=== PATIENT | female | born 1965 | race Caucasian/White ===

== ENCOUNTER 2018-01-23 08:07 | Emergency (ER) | payer MEDICARE ==
[2018-01-23 08:37] VITALS: BP 129/62
--- NOTE | 2018-01-23 10:40 | Emergency Department Report ---
Upper Extremity - HPI Chief Complaint: Shoulder Injury Stated Complaint: SHOULDER PAIN Time Seen by Provider: 01/23/18 10:36 Upper Extremity: Left Shoulder (TTP and right scapula) Occurred When: 3 Days Mechanism: Other (none) Severity: moderate Symptoms: Yes Pain with Movement, No Deformity, No Limited Range of Movement, No Numbness, No Weakness, No Swelling, No Bruising/Ecchymosis, No Laceration or Abrasion Other History: Patient reports right shoulder and upper back pain that started during the night two days ago. She tried OTC Tylenol, however to no avail. She denies YAQUELIN or chest pain ED Review of Systems ROS: Stated complaint: SHOULDER PAIN Other details as noted in HPI Constitutional: denies: chills, fever Eyes: denies: eye pain, eye discharge, vision change ENT: denies: ear pain, throat pain Respiratory: denies: cough, orthopnea, shortness of breath, SOB with exertion, SOB at rest, stridor, wheezing Cardiovascular: denies: chest pain, palpitations, dyspnea on exertion, orthopnea , edema, syncope, paroxysmal nocturnal dyspnea Gastrointestinal: denies: abdominal pain, nausea, diarrhea Genitourinary: denies: urgency, dysuria, discharge Musculoskeletal: back pain (right upper), arthralgia (right shoulder) Neurological: denies: headache, weakness, paresthesias Psychiatric: denies: anxiety, depression Hematological/Lymphatic: denies: easy bleeding, easy bruising ED Past Medical Hx - Past Medical History Previous Medical History?: Yes Hx Hypertension: Yes Hx CVA: No Hx Heart Attack/AMI: No Hx Congestive Heart Failure: No Hx Diabetes: Yes Hx Deep Vein Thrombosis: No Hx Pulmonary Embolism: No Hx GERD: No Hx Liver Disease: No Hx Renal Disease: No Hx Sickle Cell Disease: No Hx Arthritis: No Hx Headaches / Migraines: No Hx Seizures: No Hx Kidney Stones: No Hx Psychiatric Treatment: No Hx Asthma: No Hx COPD: Yes ("borderline") Hx Tuberculosis: No Hx Dementia: No Hx HIV: No - Surgical History Past Surgical History?: Yes Hx Coronary Stent: No Hx Open Heart Surgery: No Hx Pacemaker: No Hx Internal Defibrillator: No Hx Cholecystectomy: No Hx Appendectomy: No Hx Breast Surgery: No Additional Surgical History: right wrist,bilateral foot and ectopic - Social History Smoking Status: Never Smoker - Medications Home Medications: Home Medications Medication Instructions Recorded Confirmed Last Taken Type Albuterol Sulfate [Ventolin HFA] 2 puff IH Q4H PRN #1 hfa.aer.ad 02/12/16 Unknown Rx Azithromycin [Zithromax Z-GAYLE] 250 mg PO DAILY #1 pack 02/12/16 Unknown Rx Benzonatate [Tessalon Perles] 100 mg PO Q6HR #14 capsule 02/12/16 Unknown Rx Losartan/Hydrochlorothiazide 1 cap PO DAILY 02/12/16 02/12/16 Unknown History [Losartan-Hctz 50-12.5 mg Tab] Saxagliptin HCl/Metformin HCl 1 cap PO DAILY 02/12/16 02/12/16 Unknown History [Kombiglyze XR 2.5-1,000 mg] Diclofenac Sodium 75 mg PO BID #20 tablet. 01/23/18 Unknown Rx Famotidine [Pepcid] 20 mg PO BID #20 tablet 01/23/18 Unknown Rx Upper Extremity Exam - Exam General: Vital signs noted. No distress. Alert and acting appropriately. Head and Torso: Yes Back Tenderness (right scapular), No HEENT Abnormality, No Neck Tenderness, No Chest/Lungs Abnormality, No Abdominal Tenderness Shoulder Exam: Yes Shoulder Tenderness (right), Yes Normal Range of Motion in Shoulder, No Clavicle Tenderness, No Shoulder Deformity, No AC Joint Tenderness Arm Exam: No Arm/Humerus Tenderness, No Arm Deformity Elbow: No Elbow Tenderness, No Normal Range of Motion in Elbow, No Elbow Deformity Forearm: No Forearm Tenderness, No Forearm Deformity, No Pain with Pronation, No Pain with Supination Wrist: Yes Normal ROM in Wrist, No Wrist Tenderness, No Wrist Deformity, No Snuffbox Tenderness, No Pain with Axial Thumb Compression Hand: Yes Normal ROM in Digit(s), No Hand Tenderness, No Hand Deformity, No Digit Tenderness, No Digit(s) Deformity, No Tendon Dysfunction CMS Exam: No Broken Skin, No Normal Distal Pulses, No Normal Capillary Refill, No Normal Distal Sensation ED Course Vital Signs 01/23/18 08:23 Temperature 97.5 F L Pulse Rate 97 H Respiratory 16 Rate Blood Pressure 129/62 O2 Sat by Pulse 97 Oximetry ED Medical Decision Making - Lab Data Vital Signs 01/23/18 08:23 Temperature 97.5 F L Pulse Rate 97 H Respiratory 16 Rate Blood Pressure 129/62 O2 Sat by Pulse 97 Oximetry - Medical Decision Making During the course of ED, all other systems are unremarkable except for documentation in HPI. Patient sent home with prescriptions for Diclofenac Sodium and Pepcid, instructed to follow up with her PCP. She verbalized understanding - Differential Diagnosis Right Shoulder Pain, Myalgia Critical care attestation.: If time is entered above; I have spent that time in minutes in the direct care of this critically ill patient, excluding procedure time. ED Disposition Clinical Impression: Myalgia Shoulder pain, acute Qualifiers: Laterality: right Qualified Code(s): M25.511 - Pain in right shoulder Disposition: DC-01 TO HOME OR SELFCARE Is pt being admited?: No Does the pt Need Aspirin: No Condition: Stable Instructions: Musculoskeletal Pain (ED) Additional Instructions: Take medication as directed. Follow up with the selective referral given at discharge Prescriptions: Diclofenac Sodium 75 mg PO BID #20 tablet. Famotidine [Pepcid] 20 mg PO BID #20 tablet Referrals: WILIAN NICHOLSON MD [Primary Care Provider] - 3-5 Days Time of Disposition: 10:38
== END 2018-01-23 10:47 | disposition home or self-care (01) ==
LOC: ED 08:07
DX: M25.511 Pain in right shoulder (principal); M79.1 Myalgia; I10 Essential (primary) hypertension; E11.9 Type 2 diabetes mellitus without complications; J44.9 Chronic obstructive pulmonary disease, unspecified
CPT/HCPCS: 99282

== ENCOUNTER 2018-05-02 22:35 | Emergency (ER) | payer MEDICARE ==
[2018-05-02 23:28] VITALS: BP 147/85
--- NOTE | 2018-05-03 03:05 | XRay Report ---
FINAL REPORT PROCEDURE: XR HIP 2-3V RT TECHNIQUE: RIGHT hip radiographs, 2 views each, including AP view of the pelvis. HISTORY: right hip jose COMPARISON: No prior studies are available for comparison. FINDINGS: Fracture (s) and/or Dislocation(s): None . Joint space(s): Normal. Soft tissues: Normal. Bone mineralization: Normal. Foreign bodies: None. IMPRESSION: Normal Examination.
--- NOTE | 2018-05-03 03:08 | XRay Report ---
FINAL REPORT PROCEDURE: XR SPINE LUMBOSACRAL 2-3V TECHNIQUE: Lumbar spine radiographs, including AP, lateral, and lumbosacral spot views. CPT 73235 HISTORY: Lower Back Pain COMPARISON: No prior studies are available for comparison. FINDINGS: Alignment: Normal. Vertebral body heights/Disk spaces: Normal. Fracture(s): None. Facets: Normal. Bone mineralization: Normal. IMPRESSION: Normal Examination.
--- NOTE | 2018-05-03 03:10 | XRay Report ---
FINAL REPORT PROCEDURE: XR SHOULDER 2+V RT TECHNIQUE: Right shoulder radiographs including AP views in internal and external rotation and abduction. CPT 41711 HISTORY: Right Shoulder pain COMPARISON: No prior studies are available for comparison. FINDINGS: Fracture (s) and/or Dislocation(s): None . Joint space(s): Normal . Soft tissues: Normal . Bone mineralization: Normal . Foreign bodies: None . IMPRESSION: Normal Examination
[2018-05-03] MEDS ORDERED: PERCOCET 5/325 PO ONE (04:17)
[2018-05-03] MEDS ORDERED: TORADOL IM ONE (04:17)
--- NOTE | 2018-05-03 04:18 | Emergency Department Report ---
ED Fall HPI - General Chief Complaint: Fall Stated Complaint: FALL Time Seen by Provider: 05/03/18 03:55 Source: patient, family Mode of arrival: Ambulatory - History of Present Illness Initial Comments: This is a 52-year-old female here with her reports that she was at a [employer] game today and at about 7:30 PM slipped and legs went into a split. She denies any head injury or neck injury. Denies a headache or neck pain. She is reporting right shoulder pain, right hip pain and lower back pain. Patient says she has arthritis in her lower back and they wanted to do a spinal fusion but she did not want to have that done but her doctor told her that if she ever falls that she needs to come and get an x-ray done to make sure she doesn't get a fracture. Pain is worse with movement and walk-in. Pain is better with rest. Denies taking any medication prior to coming to the emergency room. MD Complaint: fall -: This evening Fall From: standing When Fall Occurred: 1-3 hours [employer]CH[employer]OLOG[employer] Fall Witnessed: yes, by family Place Fall Occurred: other (Vook matamoros) Loss of Consciousness: none Prolonged Down Time?: no Symptoms Prior to Fall: none Location: back (lower back pain), pelvis (right hip pain) Location - Extremities: Right: Shoulder (pain) Severity: severe Severity scale (0 -10): 10 (A can) Quality: aching Context: tripped/slipped Associated Symptoms: denies: headache, neck pain, numbness, weakness, chest paint, shortness of breath, abdominal pain, hematuria, unable to walk, lightheaded, vertigo, confusion - Related Data Home Medications Medication Instructions Recorded Confirmed Last Taken Losartan/Hydrochlorothiazide 1 cap PO DAILY 02/12/16 02/12/16 Unknown [Losartan-Hctz 50-12.5 mg Tab] Saxagliptin HCl/Metformin HCl 1 cap PO DAILY 02/12/16 02/12/16 Unknown [Kombiglyze XR 2.5-1,000 mg] Previous Rx's Medication Instructions Recorded Last Taken Type Albuterol Sulfate [Ventolin HFA] 2 puff IH Q4H PRN #1 hfa.aer.ad 02/12/16 Unknown Rx Azithromycin [Zithromax Z-GAYLE] 250 mg PO DAILY #1 pack 04/25/16 Unknown Rx Benzonatate [Tessalon Perles] 100 mg PO Q6HR #14 capsule 02/12/16 Unknown Rx Diclofenac Sodium 75 mg PO BID #20 tablet. 01/23/18 Unknown Rx Famotidine [Pepcid] 20 mg PO BID #20 tablet 01/23/18 Unknown Rx traMADol [Ultram] 50 mg PO Q6HR PRN #12 tablet 05/03/18 Unknown Rx Allergies Allergy/AdvReac Type Severity Reaction Status Date / Time No Known Allergies Allergy Verified 01/23/18 08:37 ED Review of Systems ROS: Stated complaint: FALL Other details as noted in HPI Constitutional: denies: chills, fever Eyes: denies: eye pain, eye discharge Respiratory: denies: cough, shortness of breath, SOB with exertion, SOB at rest , stridor, wheezing Cardiovascular: denies: chest pain, palpitations Gastrointestinal: denies: abdominal pain, nausea, vomiting Genitourinary: denies: urgency, dysuria, discharge Musculoskeletal: back pain, arthralgia. denies: joint swelling, myalgia Skin: denies: rash, lesions Neurological: denies: headache, weakness, numbness, paresthesias, confusion, abnormal gait, vertigo ED Past Medical Hx - Past Medical History Previous Medical History?: Yes Hx Hypertension: Yes Hx CVA: No Hx Heart Attack/AMI: No Hx Congestive Heart Failure: No Hx Diabetes: Yes Hx Deep Vein Thrombosis: No Hx Pulmonary Embolism: No Hx GERD: No Hx Liver Disease: No Hx Renal Disease: No Hx Sickle Cell Disease: No Hx Arthritis: No Hx Headaches / Migraines: No Hx Seizures: No Hx Kidney Stones: No Hx Psychiatric Treatment: No Hx Asthma: No Hx COPD: Yes ("borderline") Hx Tuberculosis: No Hx Dementia: No Hx HIV: No Additional medical history: Lumbar 3and5 -Chronic Low Back Pain - Surgical History Past Surgical History?: Yes Hx Coronary Stent: No Hx Open Heart Surgery: No Hx Pacemaker: No Hx Internal Defibrillator: No Hx Cholecystectomy: No Hx Appendectomy: No Hx Breast Surgery: No Additional Surgical History: right wrist,bilateral foot , Tubal Ligation - Family History Family history: hypertension - Social History Smoking Status: Never Smoker Substance Use Type: None - Medications Home Medications: Home Medications Medication Instructions Recorded Confirmed Last Taken Type Albuterol Sulfate [Ventolin HFA] 2 puff IH Q4H PRN #1 hfa.aer.ad 02/12/16 Unknown Rx Azithromycin [Zithromax Z-GAYLE] 250 mg PO DAILY #1 pack 02/12/16 Unknown Rx Benzonatate [Tessalon Perles] 100 mg PO Q6HR #14 capsule 02/12/16 Unknown Rx Losartan/Hydrochlorothiazide 1 cap PO DAILY 02/12/16 02/12/16 Unknown History [Losartan-Hctz 50-12.5 mg Tab] Saxagliptin HCl/Metformin HCl 1 cap PO DAILY 02/12/16 02/12/16 Unknown History [Kombiglyze XR 2.5-1,000 mg] Diclofenac Sodium 75 mg PO BID #20 tablet. 01/23/18 Unknown Rx Famotidine [Pepcid] 20 mg PO BID #20 tablet 01/23/18 Unknown Rx traMADol [Ultram] 50 mg PO Q6HR PRN #12 tablet 05/03/18 Unknown Rx ED Physical Exam - General Limitations: No Limitations General appearance: alert, in no apparent distress - Head Head exam: Present: atraumatic, normocephalic, normal inspection, other (normal exam) - Eye Eye exam: Present: normal appearance, PERRL, EOMI Pupils: Present: normal accommodation - ENT ENT exam: Present: normal exam, normal orophraynx, mucous membranes moist - Neck Neck exam: Present: normal inspection, full ROM, other (no C-spine tenderness). Absent: tenderness, lymphadenopathy - Respiratory Respiratory exam: Present: normal lung sounds bilaterally. Absent: respiratory distress, chest wall tenderness - Cardiovascular Cardiovascular Exam: Present: regular rate, normal rhythm, normal heart sounds. Absent: systolic murmur, diastolic murmur - GI/Abdominal GI/Abdominal exam: Present: soft, normal bowel sounds. Absent: distended, tenderness, rigid - Extremities Exam Extremities exam: Present: normal inspection, full ROM, normal capillary refill , other (no clubbing, cyanosis or edema. +2 pulses to all extremities and no neurovascular compromise. No abrasion, contusion or laceration to extremities. +5 strength in all extremities. Normal extremity exam). Absent: tenderness, pedal edema, joint swelling, calf tenderness - Back Exam Back exam: Present: normal inspection, full ROM, tenderness, paraspinal tenderness (right), other (ablated without any difficulties). Absent: CVA tenderness (R), CVA tenderness (L), muscle spasm, vertebral tenderness, rash noted - Expanded Back Exam Expanded Back exam: Absent: saddle anesthesia Back exam: Negative Straight Leg Raising: Left, Right - Neurological Exam Neurological exam: Present: alert, oriented X3, normal gait, reflexes normal. Absent: motor sensory deficit - Expanded Neurological Exam Expanded Neurological exam: Absent: innattentive, memory loss-remote event, memory loss- recent event, ataxia, receptive aphasia, expressive aphasia, total aphasia, tremor, protecting the airway Patient oriented to: Present: person, place, time Speech: Present: fluid speech Cranial nerves: EOM's Intact: Normal, Gag Reflex: Normal, Tongue Deviation: Normal, Nystagmus: Normal, Facial Sensation: Normal Cerebellar function: Romberg: Normal Upper motor neuron: Pronator Drift: Normal, Sensory Extinction: Normal Sensory exam: Upper Extremity Light Touch: Normal, Upper Extremity Temperature: Normal, UE 2 Point Discrimination: Normal, Lower Extremity Light Touch: Normal, Lower Extremity Temperature: Normal, LE 2 Point Discrimination: Normal Motor strength exam: RUE: 5, LUE: 5, RLE: 5, LLE: 5 Best Eye Response (Jo Ann): (4) open spontaneously Best Motor Response ([place]): (6) obeys commands Best Verbal Response ([place]): (5) oriented Jo Ann Total: 15 - Psychiatric Psychiatric exam: Present: normal affect, normal mood - Skin Skin exam: Present: warm, dry, intact, normal color. Absent: rash ED Course Vital Signs 05/02/18 23:20 Temperature 98.6 F Pulse Rate 72 Respiratory 18 Rate Blood Pressure 147/85 O2 Sat by Pulse 95 Oximetry - Reevaluation(s) Reevaluation #1: 05/03/18 05:16 Patient given Toradol 30 mg IM for right lumbar strain. She voiced relief of pain. ED Medical Decision Making - Radiology Data Radiology results: report reviewed Patient with x-ray of right hip, lumbar spine, right shoulder which were dictated by radiologist and report reviewed by myself. She has no acute findings. See reports below. Patient: EREN HURTADO MR#: [id number] : 1965 Acct:[id number] Age/Sex: 52 / F ADM Date: 05/02/18 Loc: ED Attending Dr: Ordering Physician: HIMANSHU NOVA MD Date of Service: 05/03/18 Procedure(s): XR hip 2-3V RT Accession Number(s): [id number] cc: HIMANSHU NOVA MD Fluoro Time In Minutes: FINAL REPORT PROCEDURE: XR HIP 2-3V RT TECHNIQUE: RIGHT hip radiographs, 2 views each, including AP view of the pelvis. HISTORY: right hip jose COMPARISON: No prior studies are available for comparison. FINDINGS: Fracture (s) and/or Dislocation(s): None . Joint space(s): Normal. Soft tissues: Normal. Bone mineralization: Normal. Foreign bodies: None. IMPRESSION: Normal Examination. Transcribed By: CO Dictated By: LOGAN BARRIOS MD Electronically Authenticated By: LOGAN BARRIOS MD Signed Date/Time: 05/03/18299 DD/ 9 TD/TT: 05/03/18299 Patient: EREN HURTADO MR#: [id number] : 1965 Acct:[id number] Age/Sex: 52 / F ADM Date: 05/02/18 Loc: ED Attending Dr: Ordering Physician: HIMANSHU NOVA MD Date of Service: 05/03/18 Procedure(s): XR spine lumbosacral 2-3V Accession Number(s): [id number] cc: HIMANSHU NOVA MD Fluoro Time In Minutes: FINAL REPORT PROCEDURE: XR SPINE LUMBOSACRAL 2-3V TECHNIQUE: Lumbar spine radiographs, including AP, lateral, and lumbosacral spot views. CPT 01424 HISTORY: Lower Back Pain COMPARISON: No prior studies are available for comparison. FINDINGS: Alignment: Normal. Vertebral body heights/Disk spaces: Normal. Fracture(s): None. Facets: Normal. Bone mineralization: Normal. IMPRESSION: Normal Examination. Transcribed By: CO Dictated By: LOGAN BARRIOS MD Electronically Authenticated By: LOGAN BARRIOS MD Signed Date/Time: 05/03/18302 DD/ 2 TD/TT: 05/03/18302 Patient: EREN HURTADO MR#: [id number] : 1965 Acct:[id number] Age/Sex: 52 / F ADM Date: 05/02/18 Loc: ED Attending Dr: Ordering Physician: HIMANSHU NOVA MD Date of Service: 05/03/18 Procedure(s): XR shoulder 2+V RT Accession Number(s): [id number] cc: HIMANSHU NOVA MD Fluoro Time In Minutes: FINAL REPORT PROCEDURE: XR SHOULDER 2+V RT TECHNIQUE: Right shoulder radiographs including AP views in internal and external rotation and abduction. CPT 82616 HISTORY: Right Shoulder pain COMPARISON: No prior studies are available for comparison. FINDINGS: Fracture (s) and/or Dislocation(s): None . Joint space(s): Normal . Soft tissues: Normal . Bone mineralization: Normal . Foreign bodies: None . IMPRESSION: Normal Examination Transcribed By: CO Dictated By: LOGAN BARRIOS MD Electronically Authenticated By: LOGAN BARRIOS MD Signed Date/Time: 05/03/18304 DD/ 4 TD/TT: 05/03/18304 - Medical Decision Making This is a 52-year-old female presents to emergency room with her . She says she was at [facility] around 730 pm last night and she fell into a split position. She is complaining of arthralgia multiple sites with right lower back pain. Patient states that he has a history of degenerative arthritis in her lower back and she wants to be evaluated to make sure things okay. Patient was examined by myself and she has right lumbar paraspinal tenderness without any vertebral tenderness. C-spine exam is normal, upper and lower extremity exam is normal. Patient is neurologically intact. Patient had x-ray of right shoulder, right hip and lumbar spine and was dictated by radiologist and x-rays report reviewed by myself. No acute findings per radiology. I discussed this with patient and her and they voice understanding. Patient given pain medication emergency room for musculoskeletal pain and lumbar strain. Patient with arthralgia multiple sites, lumbar strain and lower back pain Toradol 30 mg IM given for relief of pain. I discussed the patient that she is to follow-up with her orthopedic doctor which she does have one and she also has a neurosurgeon. I'll appear in 2-3 days and return to the emergency room if her symptoms worsen and she develops numbness certainly to extremities, loss of bowel or bladder function and/or difficulty walking. She voiced understanding. Patient discharged home in stable condition. Her vital signs are stable and she is afebrile. Patient's better. Discharge home with her to follow up with her orthopedic doctor in 3-5 days. She was given a prescription for Ultram. - Differential Diagnosis fracture, dislocation, subluxation, strain, spasm, MSK pain Critical care attestation.: If time is entered above; I have spent that time in minutes in the direct care of this critically ill patient, excluding procedure time. ED Disposition Clinical Impression: Arthralgia of multiple sites Strain of lumbar paraspinal muscle Qualifiers: Encounter type: initial encounter Qualified Code(s): S39.012A - Strain of muscle, fascia and tendon of lower back, initial encounter Lower back pain Qualifiers: Chronicity: acute Back pain laterality: right Sciatica presence: without sciatica Qualified Code(s): M54.5 - Low back pain Disposition: TO HOME OR SELFCARE Is pt being admited?: No Does the pt Need Aspirin: No Condition: Stable Instructions: Muscle Strain (ED), Arthralgia (ED), Back Pain (ED) Additional Instructions: Please follow up with primary care as recommended Increase fluid intake Take medication as prescribed . please do not drive or operate heavy machinery while Ultram as it causes drowsiness follow-up with orthopedic doctor as instructed. Prescriptions: traMADol [Ultram] 50 mg PO Q6HR PRN #12 tablet PRN Reason: Pain Referrals: PRIMARY CARE, [Primary Care Provider] - 2-3 Days NGUYEN LAL MD [Staff Physician] - 2-3 Days Forms: Accompanied Note
== END 2018-05-03 04:57 | disposition home or self-care (01) ==
LOC: ED 22:35
DX: S39.012A Strain of muscle, fascia and tendon of lower back, initial encounter (principal); M25.511 Pain in right shoulder; M25.551 Pain in right hip; I10 Essential (primary) hypertension; E11.9 Type 2 diabetes mellitus without complications; J44.9 Chronic obstructive pulmonary disease, unspecified; Z98.51 Tubal ligation status; W01.198A Fall on same level from slipping, tripping and stumbling with subsequent striking against other object, initial encounter; Y93.89 Activity, other specified; Y92.89 Other specified places as the place of occurrence of the external cause; Y99.8 Other external cause status
CPT/HCPCS: 72100; 73030; 73502; 96372; 99283; J1885

== ENCOUNTER 2019-10-25 02:08 | Emergency (ER) | payer MEDICARE ==
[2019-10-25] MEDS ORDERED: ASPIRIN 325 MG TAB PO ONE (02:50)
[2019-10-25 03:17] LABS: Hematocrit 41.7 % (30.3-42.9); Mean Corpuscular HGB Conc 31 % (30-34); Platelet Count 346 K/mm3 (140-440); Red Blood Count 6.03 M/mm3 (3.65-5.03); Red Cell Distribution Width 14.6 % (13.2-15.2)
[2019-10-25 03:29] LABS: Mean Corpuscular Volume 69 fl (79-97)
[2019-10-25 03:34] LABS: BUN/Creatinine Ratio 17; Blood Urea Nitrogen 10 mg/dL (7-17); Calcium 9.9 mg/dL (8.4-10.2); Hemolysis Index 16
--- NOTE | 2019-10-25 03:49 | XRay Report ---
CHEST 1 VIEW, 10/25/2019 3:20 AM CLINICAL INFORMATION/INDICATION: Chest pain COMPARISON: Chest radiograph, 02/12/2016 FINDINGS: SUPPORT DEVICES: None. HEART: The cardiac silhouette is normal in size. LUNGS/PLEURA: The lungs are clear of focal airspace disease or significant pleural effusion. ADDITIONAL FINDINGS: No additional acute findings. IMPRESSION: 1. No evidence of acute cardiopulmonary process. Signer Name: Nisa Garcia MD Signed: 10/25/2019 3:45 AM Workstation Name: [email or web address]
[2019-10-25 04:39] LABS: Hypochromasia 2+; Total Cells Counted 100
[2019-10-25 04:40] LABS: Schistocytes Rare; Target Cells Few
[2019-10-25 04:41] LABS: Ovalocytes Few; Platelet Estimate Consistent w Auto
[2019-10-25 07:29] VITALS: BP 153/75
[2019-10-25] MEDS ORDERED: CYCLOBENZAPRINE 10 MG TAB PO ONE (09:39)
[2019-10-25] MEDS ORDERED: dexAMETHasone 20 MG/5 ML VIAL IM ONE (09:40)
--- NOTE | 2019-10-25 09:49 | Emergency Department Report ---
Upper Extremity - HPI Chief Complaint: Chest Pain Stated Complaint: LEFT ARM/SHOULDER PAIN Time Seen by Provider: 10/25/19 09:00 Occurred When: Today Severity: mild Symptoms: Yes Limited Range of Movement, No Pain with Movement, No Deformity, No Numbness, No Weakness, No Swelling, No Bruising/Ecchymosis, No Laceration or Abrasion Other History: This is a 53-year-old female with a past medical history of diabetes who presents to ED complaining of left shoulder and hand pain that began this morning. Patient states that she felt like pins and needles in her shoulder radiating down to her hands. She denies any chest pain, shortness of breath, difficulty breathing. She states she takes Janumet for diabetes. ED Review of Systems ROS: Stated complaint: LEFT ARM/SHOULDER PAIN Other details as noted in HPI Comment: All other systems reviewed and negative ED Past Medical Hx - Past Medical History Previous Medical History?: Yes Hx Hypertension: Yes Hx CVA: No Hx Heart Attack/AMI: No Hx Congestive Heart Failure: No Hx Diabetes: Yes Hx Deep Vein Thrombosis: No Hx Pulmonary Embolism: No Hx GERD: No Hx Liver Disease: No Hx Renal Disease: No Hx Sickle Cell Disease: No Hx Arthritis: No Hx Headaches / Migraines: No Hx Seizures: No Hx Kidney Stones: No Hx Psychiatric Treatment: No Hx Asthma: No Hx COPD: Yes ("borderline") Hx Tuberculosis: No Hx Dementia: No Hx HIV: No Additional medical history: Lumbar 3and5 -Chronic Low Back Pain - Surgical History Past Surgical History?: Yes Hx Coronary Stent: No Hx Open Heart Surgery: No Hx Pacemaker: No Hx Internal Defibrillator: No Hx Cholecystectomy: No Hx Appendectomy: No Hx Breast Surgery: No Additional Surgical History: right wrist,bilateral foot , Tubal Ligation - Social History Smoking Status: Never Smoker Substance Use Type: None - Medications Home Medications: Home Medications Medication Instructions Recorded Confirmed Last Taken Type Albuterol Sulfate [Ventolin HFA] 2 puff IH Q4H PRN #1 hfa.aer.ad 02/12/16 Unknown Rx Azithromycin [Zithromax Z-GAYLE] 250 mg PO DAILY #1 pack 02/12/16 Unknown Rx Benzonatate [Tessalon Perles] 100 mg PO Q6HR #14 capsule 02/12/16 Unknown Rx Losartan/Hydrochlorothiazide 1 cap PO DAILY 02/12/16 02/12/16 Unknown History [Losartan-Hctz 50-12.5 mg Tab] Saxagliptin HCl/Metformin HCl 1 cap PO DAILY 02/12/16 02/12/16 Unknown History [Kombiglyze XR 2.5-1,000 mg] Diclofenac Sodium 75 mg PO BID #20 tablet. 01/23/18 Unknown Rx Famotidine [Pepcid] 20 mg PO BID #20 tablet 01/23/18 Unknown Rx traMADoL [Ultram] 50 mg PO Q6HR PRN #12 tablet 05/03/18 Unknown Rx Cyclobenzaprine [Flexeril] 10 mg PO QHS PRN #20 tablet 10/25/19 Unknown Rx Ibuprofen [Motrin 800 MG tab] 800 mg PO Q8HR PRN #30 tablet 10/25/19 Unknown Rx Upper Extremity Exam - Exam General: Vital signs noted. No distress. Alert and acting appropriately. Head and Torso: No HEENT Abnormality, No Neck Tenderness, No Chest/Lungs Abnormality, No Abdominal Tenderness, No Back Tenderness Shoulder Exam: Yes Shoulder Tenderness (upper and posterior), Yes Normal Range of Motion in Shoulder, No Clavicle Tenderness, No Shoulder Deformity, No AC Joint Tenderness Arm Exam: No Arm/Humerus Tenderness, No Arm Deformity Elbow: No Elbow Tenderness, No Normal Range of Motion in Elbow, No Elbow Deformity Forearm: No Forearm Tenderness, No Forearm Deformity, No Pain with Pronation, No Pain with Supination Wrist: Yes Normal ROM in Wrist, No Wrist Tenderness, No Wrist Deformity, No Snuffbox Tenderness, No Pain with Axial Thumb Compression Hand: Yes Digit Tenderness (slight, with flexion and extention), Yes Normal ROM in Digit(s), No Hand Tenderness, No Hand Deformity, No Digit(s) Deformity, No Tendon Dysfunction CMS Exam: No Broken Skin, No Normal Distal Pulses, No Normal Capillary Refill, No Normal Distal Sensation ED Course Vital Signs 10/25/19 10/25/19 02:26 07:28 Temperature 97.3 F L Pulse Rate 70 72 Respiratory 18 16 Rate Blood Pressure 137/74 Blood Pressure 153/75 [Right] O2 Sat by Pulse 95 97 Oximetry ED Medical Decision Making - Lab Data Result diagrams: 10/25/19 02:57 10/25/19 02:57 Laboratory Last Values WBC 9.4 K/mm3 (4.5-11.0) 10/25/19 02:57 RBC 6.03 M/mm3 (3.65-5.03) H 10/25/19 02:57 Hgb 13.0 gm/dl (10.1-14.3) 10/25/19 02:57 Hct 41.7 % (30.3-42.9) 10/25/19 02:57 MCV 69 fl (79-97) L 10/25/19 02:57 MCH 22 pg (28-32) L 10/25/19 02:57 MCHC 31 % (30-34) 10/25/19 02:57 RDW 14.6 % (13.2-15.2) 10/25/19 02:57 Plt Count 346 K/mm3 (140-440) 10/25/19 02:57 Lymph # Tin Pourer 10/25/19 02:57 Add Manual Diff Complete 10/25/19 02:57 Total Counted 100 10/25/19 02:57 Seg Neuts % (Manual) 27.0 % (40.0-70.0) L 10/25/19 02:57 Band Neutrophils % 0 % 10/25/19 02:57 Lymphocytes % (Manual) 55.0 % (13.4-35.0) H 10/25/19 02:57 Reactive Lymphs % (Man) 0 % 10/25/19 02:57 Monocytes % (Manual) 12.0 % (0.0-7.3) H 10/25/19 02:57 Eosinophils % (Manual) 5.0 % (0.0-4.3) H 10/25/19 02:57 Basophils % (Manual) 1.0 % (0.0-1.8) 10/25/19 02:57 Metamyelocytes % 0 % 10/25/19 02:57 Myelocytes % 0 % 10/25/19 02:57 Promyelocytes % 0 % 10/25/19 02:57 Blast Cells % 0 % 10/25/19 02:57 Nucleated RBC % Not Reportable 10/25/19 02:57 Seg Neutrophils # Man 2.5 K/mm3 (1.8-7.7) 10/25/19 02:57 Band Neutrophils # 0.0 K/mm3 10/25/19 02:57 Lymphocytes # (Manual) 5.2 K/mm3 (1.2-5.4) 10/25/19 02:57 Abs React Lymphs (Man) 0.0 K/mm3 10/25/19 02:57 Monocytes # (Manual) 1.1 K/mm3 (0.0-0.8) H 10/25/19 02:57 Eosinophils # (Manual) 0.5 K/mm3 (0.0-0.4) H 10/25/19 02:57 Basophils # (Manual) 0.1 K/mm3 (0.0-0.1) 10/25/19 02:57 Metamyelocytes # 0.0 K/mm3 10/25/19 02:57 Myelocytes # 0.0 K/mm3 10/25/19 02:57 Promyelocytes # 0.0 K/mm3 10/25/19 02:57 Blast Cells # 0.0 K/mm3 10/25/19 02:57 WBC Morphology Not Reportable 10/25/19 02:57 Hypersegmented Neuts Not Reportable 10/25/19 02:57 Hyposegmented Neuts Not Reportable 10/25/19 02:57 Hypogranular Neuts Not Reportable 10/25/19 02:57 Smudge Cells Not Reportable 10/25/19 02:57 Toxic Granulation Not Reportable 10/25/19 02:57 Toxic Vacuolation Not Reportable 10/25/19 02:57 Dohle Bodies Not Reportable 10/25/19 02:57 Pelger-Huet Anomaly Not Reportable 10/25/19 02:57 Sujey Rods Not Reportable 10/25/19 02:57 Platelet Estimate Consistent w auto 10/25/19 02:57 Clumped Platelets Not Reportable 10/25/19 02:57 Plt Clumps, EDTA Not Reportable 10/25/19 02:57 Large Platelets Not Reportable 10/25/19 02:57 Giant Platelets Not Reportable 10/25/19 02:57 Platelet Satelliting Not Reportable 10/25/19 02:57 Plt Morphology Comment Not Reportable 10/25/19 02:57 RBC Morphology Not Reportable 10/25/19 02:57 Dimorphic RBCs Not Reportable 10/25/19 02:57 Polychromasia Not Reportable 10/25/19 02:57 Hypochromasia 2+ 10/25/19 02:57 Poikilocytosis Not Reportable 10/25/19 02:57 Anisocytosis Not Reportable 10/25/19 02:57 Microcytosis Not Reportable 10/25/19 02:57 Macrocytosis Not Reportable 10/25/19 02:57 Spherocytes Not Reportable 10/25/19 02:57 Pappenheimer Bodies Not Reportable 10/25/19 02:57 Sickle Cells Not Reportable 10/25/19 02:57 Target Cells Few 10/25/19 02:57 Tear Drop Cells Not Reportable 10/25/19 02:57 Ovalocytes Few 10/25/19 02:57 Helmet Cells Not Reportable 10/25/19 02:57 Barrett-[place] Cordell Bodies Not Reportable 10/25/19 02:57 Cecil Rings Not Reportable 10/25/19 02:57 Valdez Cells Not Reportable 10/25/19 02:57 Bite Cells Not Reportable 10/25/19 02:57 Crenated Cell Not Reportable 10/25/19 02:57 Elliptocytes Not Reportable 10/25/19 02:57 Acanthocytes (Spur) Not Reportable 10/25/19 02:57 Rouleaux Not Reportable 10/25/19 02:57 Hemoglobin C Crystals Not Reportable 10/25/19 02:57 Schistocytes Rare 10/25/19 02:57 Malaria parasites Not Reportable 10/25/19 02:57 [place] Bodies Not Reportable 10/25/19 02:57 Hem Pathologist Commnt No 10/25/19 02:57 Sodium 141 mmol/L (137-145) 10/25/19 02:57 Potassium 4.5 mmol/L (3.6-5.0) 10/25/19 02:57 Chloride 101.2 mmol/L (98-107) 10/25/19 02:57 Carbon Dioxide 26 mmol/L (22-30) 10/25/19 02:57 Anion Gap 18 mmol/L 10/25/19 02:57 BUN 10 mg/dL (7-17) 10/25/19 02:57 Creatinine 0.6 mg/dL (0.7-1.2) L 10/25/19 02:57 Estimated GFR > 60 ml/min 10/25/19 02:57 BUN/Creatinine Ratio 17 % 10/25/19 02:57 Glucose 131 mg/dL (65-100) H 10/25/19 02:57 Calcium 9.9 mg/dL (8.4-10.2) 10/25/19 02:57 Troponin T < 0.010 ng/mL (0.00-0.029) 10/25/19 08:36 - Radiology Data Radiology results: report reviewed No acute findings. - Medical Decision Making 54-year-old female who presented with left shoulder pain secondary to tendinitis or cervical radiculopathy Patient was worked up as a chest pain patient and have all labs completed. EKG troponin and chest x-ray were all negative All labs are negative as well. Discussed all findings with the patient. Upon examination patient so signs of muscle spasm and left shoulder tendinitis. Discussed follow-up with primary care physician. Discussed medication such as Motrin and Flexeril for pain and spasm. Patient is in no acute distress at the moment patient received medication in the ED. Mathis vital signs are normal patient is in no acute distress. Critical care attestation.: If time is entered above; I have spent that time in minutes in the direct care of this critically ill patient, excluding procedure time. ED Disposition Clinical Impression: Left shoulder tendinitis, Left shoulder pain Disposition: DC-01 TO HOME OR SELFCARE Is pt being admited?: No Does the pt Need Aspirin: No Condition: Stable Instructions: Rotator Cuff Tendinitis (ED), Peripheral Neuropathy (ED) Additional Instructions: Make sure to follow up with the primary care physician as discussed. Take all your medications as you've been prescribed. If you have any worsening symptoms or develop new symptoms please return to ED immediately. Referrals: NGUYEN SINGH MD [Primary Care Provider] - 3-5 Days ABILIO PORRAS MD [Staff Physician] - 3-5 Days [facility] [Provider Group] - 3-5 Days Forms: Accompanied Note, Work/School Release Form(ED) Time of Disposition: 09:57
== END 2019-10-25 10:14 | disposition home or self-care (01) ==
LOC: ED 02:08
DX: M77.9 Enthesopathy, unspecified (principal); I10 Essential (primary) hypertension; E11.9 Type 2 diabetes mellitus without complications; J44.9 Chronic obstructive pulmonary disease, unspecified
CPT/HCPCS: 36415; 71045; 80048; 84484; 85007; 85025; 93005; 93010; 96372; 99284; J1100

== ENCOUNTER 2022-06-09 20:53 | Emergency (ER) | payer MEDICARE ==
[2022-06-10] MEDS ORDERED: oxyCODONE /ACETAMINOPHEN 5-325MG TAB PO ONE (01:24)
[2022-06-10] MEDS ORDERED: dexAMETHasone 20 MG/5 ML VIAL IM ONE (01:24)
[2022-06-10] MEDS ORDERED: KETOROLAC 60 MG/2 ML INJ IM ONE (01:24)
[2022-06-10] MEDS ORDERED: ONDANSETRON 4 MG ODT TAB PO ONE (01:24)
--- NOTE | 2022-06-10 01:52 | Emergency Department Report ---
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 Patient states that she followed up with her primary care physician who ordered some x-rays of her lumbar spine and which confirmed the need headaches that was stable. Patient states that she has been taking flun-lll-cadyeso medications with no relief. Patient states that in the last 3 days she has not been able to sleep because of worsening pain in her low back and bilateral shoulders. Patient denies dizziness, syncope, seizures, loss of consciousness, head or neck injuries, nausea and vomiting, chest pain, shortness of breath, numbness and tingling or weakness of upper and lower extremities bilaterally. MD Complaint: fall, other (bilateral shoulder pain, lower back pain ) -: Gradual, month(s) (2) Fall From: standing, other (slipped and fell down on floor) When Fall Occurred: other (2 months ago) Place Fall Occurred: other (grocery store) Loss of Consciousness: none Prolonged Down Time?: no Symptoms Prior to Fall: none Location: back (lower), pelvis, other (bilateral shoulder pain) Location - Extremities: Left: Shoulder (pain), Right: Shoulder Severity: severe Severity scale (0 -10): 8 Quality: sharp, aching Context: tripped/slipped Associated Symptoms: denies. denies: headache, neck pain, numbness, weakness, chest paint, shortness of breath, abdominal pain, hematuria, unable to walk, lightheaded, vertigo, confusion - Related Data Home Medications Medication Instructions Recorded Confirmed Last Taken Losartan/Hydrochlorothiazide 1 cap PO DAILY 02/12/16 02/12/16 Unknown [Losartan-Hctz 50-12.5 mg Tab] Saxagliptin HCl/Metformin HCl 1 cap PO DAILY 02/12/16 02/12/16 Unknown [Kombiglyze XR 2.5-1,000 mg] Previous Rx's Medication Instructions Recorded Last Taken Type Albuterol Sulfate [Ventolin HFA] 2 puff IH Q4H PRN #1 hfa.aer.ad 02/12/16 Unknown Rx Azithromycin [Zithromax Z-GAYLE] 250 mg PO DAILY #1 pack 02/12/16 Unknown Rx Benzonatate [Tessalon Perles] 100 mg PO Q6HR #14 capsule 02/12/16 Unknown Rx Diclofenac Sodium 75 mg PO BID #20 tablet. 01/23/18 Unknown Rx Famotidine [Pepcid] 20 mg PO BID #20 tablet 01/23/18 Unknown Rx Cyclobenzaprine [Flexeril] 10 mg PO QHS PRN #20 tablet 10/25/19 Unknown Rx Baclofen 20 mg PO Q12H PRN #30 tab 06/10/22 Unknown Rx Ibuprofen [Motrin 800 MG tab] 800 mg PO Q8HR PRN #30 tablet 06/10/22 Unknown Rx traMADoL [Ultram 50 MG tab] 50 mg PO Q6HR PRN #12 tablet 06/10/22 Unknown Rx Allergies Allergy/AdvReac Type Severity Reaction Status Date / Time No Known Allergies Allergy Verified 01/23/18 08:37 ED Review of Systems ROS: Stated complaint: LOWER BACK PAIN Other details as noted in HPI Constitutional: denies: chills, fever Eyes: denies: eye pain, eye discharge, vision change ENT: denies: ear pain, throat pain Respiratory: denies: cough, shortness of breath, wheezing Cardiovascular: denies: chest pain, palpitations Endocrine: no symptoms reported Gastrointestinal: denies: abdominal pain, nausea, diarrhea Genitourinary: denies: urgency, dysuria, discharge Musculoskeletal: back pain (lower pain), arthralgia (bilateral shoulder pain), other (bilateral hip pain). denies: joint swelling Skin: denies: rash, lesions Neurological: denies: headache, weakness, paresthesias Psychiatric: denies: anxiety, depression Hematological/Lymphatic: denies: easy bleeding, easy bruising ED Past Medical Hx - Past Medical History Hx Hypertension: Yes Hx CVA: No Hx Heart Attack/AMI: No Hx Congestive Heart Failure: No Hx Diabetes: Yes Hx Deep Vein Thrombosis: No Hx Pulmonary Embolism: No Hx GERD: No Hx Liver Disease: No Hx Renal Disease: No Hx Sickle Cell Disease: No Hx Arthritis: No Hx Headaches / Migraines: No Hx Seizures: No Hx Kidney Stones: No Hx Psychiatric Treatment: No Hx Asthma: No Hx COPD: Yes ("borderline") Hx Tuberculosis: No Hx Dementia: No Hx HIV: No Additional medical history: Lumbar 3and5 -Chronic Low Back Pain - Surgical History Hx Coronary Stent: No Hx Open Heart Surgery: No Hx Pacemaker: No Hx Internal Defibrillator: No Hx Cholecystectomy: No Hx Appendectomy: No Hx Breast Surgery: No Additional Surgical History: right wrist,bilateral foot , Tubal Ligation - Social History Smoking Status: Never Smoker Substance Use Type: None - Medications Home Medications: Home Medications Medication Instructions Recorded Confirmed Last Taken Type Albuterol Sulfate [Ventolin HFA] 2 puff IH Q4H PRN #1 hfa.aer.ad 02/12/16 Unknown Rx Azithromycin [Zithromax Z-GAYLE] 250 mg PO DAILY #1 pack 02/12/16 Unknown Rx Benzonatate [Tessalon Perles] 100 mg PO Q6HR #14 capsule 02/12/16 Unknown Rx Losartan/Hydrochlorothiazide 1 cap PO DAILY 02/12/16 02/12/16 Unknown History [Losartan-Hctz 50-12.5 mg Tab] Saxagliptin HCl/Metformin HCl 1 cap PO DAILY 02/12/16 02/12/16 Unknown History [Kombiglyze XR 2.5-1,000 mg] Diclofenac Sodium 75 mg PO BID #20 tablet. 01/23/18 Unknown Rx Famotidine [Pepcid] 20 mg PO BID #20 tablet 01/23/18 Unknown Rx Cyclobenzaprine [Flexeril] 10 mg PO QHS PRN #20 tablet 10/25/19 Unknown Rx Baclofen 20 mg PO Q12H PRN #30 tab 06/10/22 Unknown Rx Ibuprofen [Motrin 800 MG tab] 800 mg PO Q8HR PRN #30 tablet 06/10/22 Unknown Rx traMADoL [Ultram 50 MG tab] 50 mg PO Q6HR PRN #12 tablet 06/10/22 Unknown Rx ED Physical Exam - General Limitations: No Limitations General appearance: alert, in no apparent distress - Head Head exam: Present: atraumatic, normocephalic, normal inspection - Eye Eye exam: Present: normal appearance, PERRL, EOMI Pupils: Present: normal accommodation - ENT ENT exam: Present: normal exam, normal orophraynx, mucous membranes moist, TM's normal bilaterally, normal external ear exam - Neck Neck exam: Present: normal inspection, full ROM. Absent: tenderness - Respiratory Respiratory exam: Present: normal lung sounds bilaterally. Absent: respiratory distress, wheezes, rales, stridor, chest wall tenderness - Cardiovascular Cardiovascular Exam: Present: regular rate, normal rhythm, normal heart sounds. Absent: systolic murmur, diastolic murmur, rubs, gallop - GI/Abdominal GI/Abdominal exam: Present: soft, normal bowel sounds. Absent: tenderness, guarding, rebound, rigid, hyperactive bowel sounds, hypoactive bowel sounds, organomegaly, mass - Extremities Exam Extremities exam: Present: normal inspection, full ROM, tenderness (Palpable bilateral shoulder tenderness; ), normal capillary refill. Absent: calf tenderness - Back Exam Back exam: Present: normal inspection, full ROM, tenderness (Palpable lumbosacral paraspinal musculoskeletal tenderness), muscle spasm, paraspinal tenderness. Absent: CVA tenderness (R), CVA tenderness (L), vertebral tenderness - Neurological Exam Neurological exam: Present: alert, oriented X3, CN II-XII intact, normal gait, reflexes normal - Psychiatric Psychiatric exam: Present: normal affect, normal mood - Skin Skin exam: Present: warm, dry, intact, normal color. Absent: rash ED Course Vital Signs 06/09/22 22:07 Temperature 98.5 F Pulse Rate 76 Respiratory 18 Rate Blood Pressure 142/74 [Right] O2 Sat by Pulse 96 Oximetry ED Medical Decision Making - Medical Decision Making This is a 56-year-old female with a history of hypertension, qsf-evqqbkv-cobumfqjk diabetes, chronic low back pain due to herniated lumbar disks, and COPD who presents to the ED with complaint of acute exacerbation of her chronic low back pain and bilateral shoulder pain after she slipped on a wet floor 2 months ago and fell down at a grocery store. Patient states that she followed up with her primary care physician who ordered some x-rays of her lumbar spine and which confirmed the need headaches that was stable. Patient states that she has been taking mcak-vua-wlytpqj medications with no relief. Patient states that in the last 3 days she has not been able to sleep because of worsening pain in her low back and bilateral shoulders. In the ED, patient is alert and oriented x3 and is not in any distress. Patient was treated for pain in the ED. Patient was discharged home on pain medications and advised to follow-up with her primary care physician in 7 to 10 days for reevaluation or return to the ED immediately if symptoms get worse. - Differential Diagnosis muscle strain; muscle spasm; chronic low back pain; Critical care attestation.: If time is entered above; I have spent that time in minutes in the direct care of this critically ill patient, excluding procedure time. ED Disposition Clinical Impression: Acute exacerbation of chronic low back pain, Spasm of muscle of lower back, Acute pain of both shoulders Disposition: HOME / SELF CARE / HOMELESS Is pt being admited?: No Does the pt Need Aspirin: No Condition: Stable Instructions: Muscle Cramps and Spasms, [id number], Shoulder Pain, Dfvs-[id number], Chronic Back Pain, [id number] Additional Instructions: Take medication with food, drink plenty of fluids, follow-up with your primary care physician in 7 to 10 days for reevaluation. Return to the ED immediately if symptoms get worse. Prescriptions: Baclofen 20 mg PO Q12H PRN #30 tab PRN Reason: Muscle Spasm Ibuprofen [Motrin 800 MG tab] 800 mg PO Q8HR PRN #30 tablet PRN Reason: Pain traMADoL [Ultram 50 MG tab] 50 mg PO Q6HR PRN #12 tablet PRN Reason: Pain Referrals: [facility] [Provider Group] - 7-10 days Time of Disposition: 01:55 Print Language: VINCENTIAN
[2022-06-10 03:12] VITALS: BP 149/78
== END 2022-06-10 03:11 | disposition home or self-care (01) ==
LOC: ED 20:53
DX: M54.50 Low back pain, unspecified (principal); M62.830 Muscle spasm of back; M25.511 Pain in right shoulder; M25.512 Pain in left shoulder; I10 Essential (primary) hypertension
CPT/HCPCS: 96372; 99282; J1100; J1885; J3490; Q0162